=== PATIENT | female | born 1960 ===

== ENCOUNTER 2023-04-08 12:50 | Emergency (ER) | payer SELFPAY ==
[2023-04-08 13:04] VITALS: BP 133/90; PULSE 94; RESP 18; TEMP 36.3; O2SAT 94
--- NOTE | 2023-04-08 14:46 | PC.NURSE ---
pt up to desk stating her bleeding has decreased. states will return if further problems. made aware to return if condition worsens.
== END 2023-04-09 04:36 | disposition left against medical advice (07) ==
DX: S01.01XA Laceration without foreign body of scalp, initial encounter (principal)
CPT/HCPCS: 99199